=== PATIENT | female | born 2000 | race African-American/Black ===

== ENCOUNTER 2021-01-29 11:04 | Emergency (ER) | payer MEDICAID ==
[~2021-01-29] VITALS: Ht 149.9 cm; Wt 77.0 kg
[2021-01-29] MEDS ORDERED: SODIUM CHLORIDE 0.9% 1,000 ML IV ONE (11:30)
[2021-01-29 12:15] LABS: BASOPHILS % 0.5 % (0.0-2.0); EOSINOPHILS % 0.4 % (0.0-5.0); HEMATOCRIT. 35.4 % (36.0-48.0); LYMPHOCYTES % 23.9 % (20.0-50.0); MEAN CORPUSCULAR HEMOGLOBIN 30.5 pg (28.0-32.0); MEAN CORPUSCULAR VOLUME 89.7 fL (81.0-99.0); MONOCYTES % 5.6 % (2.0-8.0); NEUTROPHILS % 69.6 % (40.0-76.0); PLATELET 288 x1000/uL (130-400); RED BLOOD CELL COUNT 3.95 mill/uL (4.2-5.4); RED CELL DISTRIBUTION WIDTH 13.2 % (11.6-14.6)
[2021-01-29 12:18] LABS: CLARITY URINE CLOUDY (CLEAR); COLOR URINE YELLOW (YELLOW); KETONES URINE 4+ (NEGATIVE); LEUKOCYTE ESTERASE URINE 1+ (NEGATIVE); NITRITE URINE NEGATIVE (NEGATIVE); OCCULT BLOOD URINE NEGATIVE (NEGATIVE); PROTEIN URINE TRACE (NEGATIVE); SPECIFIC GRAVITY URINE 1.031 (1.005-1.030)
[2021-01-29 12:22] LABS: CHLORIDE 110 mEq/L (98-107)
[2021-01-29 12:25] LABS: PROTHROMBIN TIME 11.1 sec (9.6-11.0)
[2021-01-29 12:30] LABS: HCG SCREEN POSITIVE
[2021-01-29] MEDS ORDERED: CEPH250C2 MT (12:52)
[2021-01-29 13:14] LABS: B-HCG QUANTITATIVE 15441 mIU/mL (<3)
[2021-01-29] MEDS ORDERED: CEPHALEXIN 250MG CAPSULE PO ONE (13:30)
[2021-01-29 13:55] VITALS: BP 125/62
== END 2021-01-29 14:34 | disposition home or self-care (01) ==
LOC: ER 11:28
DX: O23.41 Unspecified infection of urinary tract in pregnancy, first trimester (principal); Z3A.01 Less than 8 weeks gestation of pregnancy
CPT/HCPCS: 36415; 76801; 76817; 80053; 81003; 83690; 84702; 84703; 85025; 85610; 86850; 86900; 86901; 99284; J7030